=== PATIENT | female | born 1960 | race African-American/Black ===

== ENCOUNTER 2017-01-04 08:55 | Inpatient (IN) | payer OTHER ==
[2017-01-04] VITALS (27 sets, daily range): BP systolic 105–152; BP diastolic 53–109
[~2017-01-04] VITALS: Ht 172.7 cm; Wt 47.6 kg
--- NOTE | ~2017-01-04 | HC ---
[facility] [place] [address] CONSULTATION Name: HERMINIA RUBIO Room #: [facility] IN M.R.#: [id number] Admission: 01/04/17 Attend Phys: Concepcion Webster MD Discharge: Date of : 64 Report #: [id number] THIS REPORT FOR: //name// CC: Riley Webster DATE OF SERVICE: 01/06/2017 CHIEF COMPLAINT: Stage IV sacral pressure ulceration. HISTORY OF PRESENT ILLNESS: This is a 56-year-old female patient with chronic respiratory failure with tracheostomy and ventilator assistance who was admitted from local long-term acute care hospital for anasarca and ongoing respiratory failure. 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 She is also noted to have a large stage IV pressure ulcer. I have been asked to see her in this regard. PAST MEDICAL HISTORY: Positive for stroke, Guillain-[place] syndrome, history of cerebrovascular accident, respiratory failure with tracheostomy and ventilator dependency, hypertension, and diabetes mellitus. ALLERGIES: SHE HAS ALLERGIES TO IODINE AND PENICILLIN. MEDICATIONS: Include famotidine, enoxaparin, vancomycin, ondansetron, sertraline, gabapentin, doxazosin, minoxidil, labetalol, clonidine, and lorazepam. SOCIAL HISTORY: The patient lives in a nursing care facility. No recent history of alcohol or tobacco use. FAMILY HISTORY: Unknown. REVIEW OF SYSTEMS: Not obtainable due to the patient's condition. PHYSICAL EXAMINATION: VITAL SIGNS: At this time include respiratory rate 18, pulse rate of 80, blood pressure 143/56, temperature is 97.8. GENERAL: This is a chronically ill-appearing female patient who appears to be in no distress. HEENT: Head, normocephalic. Nose and throat are clear. Pupils are equal and reactive. NECK: Supple. LUNGS: Clear. HEART: Regular rhythm. NECK: Demonstrates tracheostomy in place. ABDOMEN: Obese, soft, nontender. [facility] [address] [place] [address] CONSULTATION Name: HERMINIA RUBIO Room #: [address] [place] [address] IN M.R.#: [id number] Admission: 01/04/17 Attend Phys: Concepcion Webster MD Discharge: Date of : 64 Report #: [id number] EXTREMITIES: Demonstrate some bogginess to the heels with no obvious breakdown. Demonstrate moderate edema present in upper and lower extremities. BACK: Examination of the back demonstrates a stage IV sacral pressure ulceration, it is a mix of granulation fibrin and some undermining is noted. It is not overtly infected. LABORATORY DATA: Sodium 124, potassium 3.7, chloride 90, CO2 25, BUN 88, creatinine 2.2, glucose is 158. Protime is 11.6, INR 1.1. White blood cell count 7.5, hemoglobin 7.0. CLINICAL IMPRESSION: 1. Stage IV sacral pressure ulceration. 2. Respiratory failure. 3. History of Guillain-[place]as[place] syndrome. 4. Possible deep tissue injury with bogginess to both heels. 5. Renal failure with anasarca. 6. Respiratory failure requiring tracheostomy and ventilator. RECOMMENDATIONS: At this point in time, we will recommend 1/4 strength Dakin's moist gauze packing to the sacral region. She will need to be turned and repositioned every 2 hours. We recommend protective boots to both heels. No other dressings were required at this time. Continue with aggressive nutritional support. I appreciate being asked to see her in consultation. <ELECTRONICALLY SIGNED> By: Joseph Reese MD 01/07/17 1030 1944 0212 Joseph Reese MD /nt
--- NOTE | ~2017-01-04 | EKG ---
[place] [address] [place] [address] ELECTROCARDIOGRAM REPORT Name: HERMINIA RUBIO Room #: 237-P ADM IN M.R.#: [id number] Admission: 01/04/17 Attend Phys: Concepcion Webster MD Discharge: Date of : 64 Report #: [id number] THIS REPORT FOR: //name// [facility] ED Test Date: 2017-01-04 Test Time: 10:25:36 Pat Name: HERMINIA RUBIO Department: Room: 237 Gender: F Cnc Operator Machinist: NICKO : 1960 Requested By: Dmitri Brooks Order Number: [id number] MD: Milton Angeles Measurements Intervals [place] Rate: 71 P: 82 [place]: 152 QRS: 88 QRSD: 96 T: -45 QT: 429 QTc: 467 Interpretive Statements Sinus rhythm Borderline repolarization abnormality Baseline wander in lead(s) I,III,aVR,aVL No previous ECG available for comparison Electronically Signed On 01-05-2017 13:45:43 CDT by Milton Angeles [email or web address] <ELECTRONICALLY SIGNED> By: Milton Angeles MD, [facility] 01/05/17 1345 1025 1025 Milton Angeles MD, [facility] /EPI
--- NOTE | ~2017-01-04 | H ---
[facility] [place] [address] HISTORY AND PHYSICAL Name: HERMINIA RUBIO Room #: 462-P ADM IN M.R.#: [id number] Admission: 01/04/17 Attend Phys: Concepcion Webster MD Discharge: Date of : 64 Report #: [id number] THIS REPORT FOR: //name// CC: Stankathryn Us Concepcion Webster DATE OF SERVICE: 01/04/2017 ATTENDING PHYSICIAN: Concepcion Webster MD. CHIEF COMPLAINT: Generalized swelling and respiratory failure. HISTORY OF PRESENT ILLNESS: This is a 56-year-old female with known history of Gullain-Orient syndrome with respiratory failure who has been on ventilator dependent. The patient was at [facility] and was noted to have fluid retention with bilateral lower extremity edema. The patient was given some Lasix, which did not help, but continued to have severe swelling all over her body. The patient has been admitted to the hospital and started on dialysis. She is currently on the ventilator. PAST MEDICAL HISTORY: Significant for history of Gullain-Orient syndrome, history of cerebrovascular accident and respiratory failure vent dependent, hypertension and diabetes mellitus. ALLERGIES: She is known to be allergic to IODINE and PENICILLIN. MEDICATIONS: She was currently on was reconciled and reviewed. She was on multiple blood pressure medications and insulin sliding scale. REVIEW OF SYSTEMS: Not possible. SOCIAL HISTORY: None available. PHYSICAL EXAMINATION: GENERAL: Elderly lady who was in bed. She was in moderate distress secondary to her generalized swelling. VITAL SIGNS: She was afebrile, pulse was 78 per minute and regular, respiratory rate of 16, blood pressure 147/81. NECK: The patient had anterior tracheostomy and was on the ventilator. LUNGS: Clear with no wheezing and there was diminished air entry bilaterally. HEART: First and second heart sound which is normal. ABDOMEN: The patient had generalized 3+ edema of her extremities and her abdominal wall. LABORATORY DATA: On admission showed sodium of 120, potassium 5.7, chloride of 88, bicarbonate of 21. BUN was 132, creatinine of 2.7. Natriuretic peptide was [facility] [address] [place] [address] HISTORY AND PHYSICAL Name: HERMINIA RUBIO Room #: 462-[facility] IN M.R.#: [id number] Admission: 01/04/17 Attend Phys: Concepcion Webster MD Discharge: Date of : 64 Report #: [id number] 15,000. White cell count 8.6, hemoglobin 7.4, hematocrit 20.3 and a platelet count of 190. Urine culture was pending. Chest x-ray: Cardiomegaly with bilateral interstitial edema suggestive of CHF. ASSESSMENT: 1. Anasarca. 2. Renal failure. 3. Respiratory failure. PLAN: To admit her to the Intensive Care Unit. She was on a ventilator. We will have her respiratory consultation as well as renal consult to get started on dialysis and monitor her labs. <ELECTRONICALLY SIGNED> By: Concepcion Webster MD 01/15/17 1413 0949 1028 Concepcion Webster MD /nt
--- NOTE | ~2017-01-04 | HC ---
[facility] [place] [address] CONSULTATION Name: HERMINIA RUBIO Room #: 462- ADM IN M.R.#: [id number] Admission: 01/04/17 Attend Phys: Concepcion Webster MD Discharge: Date of : 64 Report #: [id number] THIS REPORT FOR: //name// CC: Riley Webster REASON FOR CONSULTATION: I was asked to evaluate concerning sacral decubitus infection. HISTORY OF PRESENT ILLNESS: The patient was a 56-year-old who was transferred from Chronic Vent Unit at [facility]. She has chronic kidney disease, on dialysis previously, who had come off dialysis and access was removed a short time ago. She has underlying diabetes and hypertension with a stroke and right hemiparesis with aphasia. She also was diagnosed with Guillain-[place] and treated at [facility]. Transferred to [facility] on 01/04/2017 with anasarca and worsening renal failure along with hyperkalemia. She remains chronically on the ventilator. Dialysis was reinitiated and her parameters have all improved. REVIEW OF SYSTEMS: Notes some nausea and vomiting initially. Her PEG tube was put to suction. She has had a moderate amount of tracheal secretions. Oxygen saturation has been stable on 30% FiO2. Since being on Kayexalate for her hyperkalemia she has had diarrhea. She has a chronic wound to her coccyx. This has been treated with Dakin's dressing changes. ALLERGIES: PENICILLIN AND IODINE. MEDICATIONS: As noted on her JUL. No recent antibiotics. PAST MEDICAL HISTORY: Stroke, respiratory failure, ventilatory-dependent, hypertension, diabetes, Guillain-[place], renal failure. FAMILY HISTORY: Noncontributory. SOCIAL HISTORY: Not currently available other than that she moved from [place] to be closer to her family. PHYSICAL EXAMINATION: VITAL SIGNS: Afebrile and hemodynamically stable. GENERAL: She was alert and cooperative. HEENT: Unremarkable. Tracheostomy is unremarkable. She had 2+ anasarca. LUNGS: Coarse bilaterally. She had a moderate amount of yellow tracheal secretions. HEART: Regular, without murmur. ABDOMEN: Soft, nontender, no hepatosplenomegaly or mass. PEG site was unremarkable. GENITOURINARY AND RECTAL: She had an indwelling Sinclair catheter. She had a [facility] [address] [address] CONSULTATION Name: HERMINIA RUBIO Room #: [facility] IN M.R.#: [id number] Admission: 01/04/17 Attend Phys: Concepcion Webster MD Discharge: Date of : 64 Report #: [id number] tube in place. There was a stage IV decubitus to her coccyx with minimal granulation tissue. EXTREMITIES: Lower extremities unremarkable. LABORATORY STUDIES: Sodium 124, potassium 3.7, creatinine 2.2, bicarbonate 25. BNP 15,000. INR 1.1. Hemoglobin 7, WBC 7.5, platelet count 196,000, differential unremarkable. MRSA screen positive. C. difficile PCR negative. Urinalysis, moderate WBC, many bacteria, yeast present. Yesterday ABG on 30% FIO2 showed pO2 of 64, pCO2 of 35, pH 7.35. Culture results from the sputum showing MRSA. Urine culture, Klebsiella oxytoca, which was ESBL linen grader. Chest x-ray, bilateral basilar infiltrates and atelectasis. IMPRESSION AND PLAN: A 56-year-old with respiratory failure, diabetes, hypertension, previous stroke, chronic kidney disease which looks like end-stage at this point in time requiring hemodialysis, who has large sacral decubitus with a Klebsiella urinary tract infection and MRSA bronchopneumonia. Recommend vancomycin and meropenem due to her PENICILLIN allergy. We will adjust for her renal failure. She will continue with hemodialysis per Nephrology service. Unclear yet if she is going to be end stage, but it looks like she is headed that way. We will continue with dressing changes to her sacrum and offload as best as possible. We will keep a rectal tube in place in order to keep the wound as clean as possible. <ELECTRONICALLY SIGNED> By: Noe Us MD 01/11/17 1247 1604 2142 Noe Us MD /nt
--- NOTE | ~2017-01-04 | HC ---
[facility] [place] [address] CONSULTATION Name: HERMINIA RUBIO Room #: [facility] ADM IN M.R.#: [id number] Admission: 01/04/17 Attend Phys: Concepcion Webster MD Discharge: Date of : 64 Report #: [id number] THIS REPORT FOR: //name// CC: Stanjovanycat Magen Concepcion Webster DATE OF SERVICE: 01/04/2017 ATTENDING PHYSICIAN: Dr. Concepcion Webster MD REASON FOR CONSULTATION: Chronic kidney disease. HISTORY OF PRESENT ILLNESS: The patient with known chronic kidney disease, previously on dialysis, had been withdrawn from dialysis during a recent hospitalization at [facility]. Access was removed. She was transferred to group home, but over the last several days, has had decreasing urine output, increasing swelling and now unresponsive to IV Lasix in terms of urine output with rising creatinine and BUN. Most recent creatinine is 2.7 with a BUN of 132, potassium of 5.7, a serum sodium of only 120, hemoglobin of 7.4. PAST MEDICAL HISTORY: Longstanding diabetes and hypertension, previous CVA with right hemiparesis and aphasia, previous coronary bypass, previous dialysis as mentioned. She also had a recent diagnosis of Guillain-[place], but is unclear as to how that was treated. FAMILY HISTORY: Negative for renal disease. SOCIAL HISTORY: Has moved up here from [place] be closely to more family. REVIEW OF SYSTEMS: Cannot be taken due to the patient's mental status. She is on the ventilator and seen here in ICU. Extensive history taken from her daughter. PHYSICAL EXAMINATION: GENERAL: This is a chronically ill appearing, somewhat swollen woman on the ventilator. SKIN: Unremarkable. SKELETAL: Diffuse edema everywhere. HEENT: Extraocular movements appear to be full. No scleral icterus. Hearing appears intact. Mucous membranes are slightly dry. Endotracheal tube in place with tracheostomy. CHEST: Shows diminished breath sounds. HEART: Regular. ABDOMEN: Shows edema, firm. EXTREMITIES: Again, 2+ peripheral edema. [facility] [address] [place] [address] CONSULTATION Name: HERMINIA RUBIO Room #: [address] [place] [address] IN .R.#: [id number] Admission: 01/04/17 Attend Phys: Concepcion Webster MD Discharge: Date of : 64 Report #: [id number] LABORATORY DATA: Urinalysis shows a concentrated urine of 1.025 with bacteriuria. The hemoglobin is 7.4, white count 8.6, platelets 190. Sodium 120, potassium 5.7, chloride 88, bicarbonate 21, BUN 132, creatinine 2.7. Chest x-ray suggests volume overload and congestive heart failure. ASSESSMENT AND PLAN: 1. Chronic kidney disease. She appears to be having another acute exacerbation with her chronic kidney disease. It looks like she will need dialysis. I will change her Sinclair catheter. She will need a renal sonogram performed as well. We will order that and she will also be ordered for dialysis starting tomorrow. 2. History of cerebrovascular accident. 3. Guillain-[place]. 4. Diabetes mellitus. 5. Hypertension. 6. Previous coronary bypass. <ELECTRONICALLY SIGNED> By: Jb Laguna MD 01/06/17 1144 1419 2257 Jb Laguna MD /nt
--- NOTE | ~2017-01-04 | D ---
[facility] [place] [address] DISCHARGE SUMMARY Name: HERMINIA RUBIO Room #: 462-P [facility] IN M.R.#: [id number] Admission: 01/04/17 Attend Phys: Concepcion Webster MD Discharge: Date of : 64 Report #: [id number] THIS REPORT FOR: //name// CC: Riley Webster FINAL DIAGNOSES: 1. Acute renal failure. 2. Chronic hypoxic respiratory failure. 3. Guillain-[place] syndrome. 4. Cerebrovascular disease. 5. Hypertension. 6. Anemia of chronic disease. HOSPITAL COURSE: The patient was admitted for evaluation of respiratory failure and renal failure. She has been on the ventilator related to an episode of Guillain-[place] syndrome earlier this year and previously had been unweanable. She received [facility] hospital prior to her group home admission. She had worsening renal function that ultimately required initiation of hemodialysis. She had diffuse anasarca that was removed with serial dialysis treatments. During her stay, she was weaned from the ventilator. She was tolerating a T-tube overnight with a Passy-Tank valve during the day. She had a video swallow and speech upgraded to an oral diet. Tube feedings were held. She continued with wound care to the sacrum. She was having liquid stools with control device in place. Ultimately, the plan was for her to transfer to an LTAC facility in hopes of weaning her tracheostomy tube. PHYSICAL EXAMINATION: On the day of discharge: GENERAL: She was awake and alert, on hemodialysis, on a T-tube. VITAL SIGNS: Stable. LUNGS: Clear. HEART: Regular. ABDOMEN: Soft, normoactive bowel sounds. EXTREMITIES: No edema. DISPOSITION: She is being transferred to [facility]. I signed all her transfer orders. I have spoken to the . Follow up will be with Dr. Us, pulmonary, renal, ID, and wound care teams. Prognosis is optimistic at this point for continued pulmonary improvement. <ELECTRONICALLY SIGNED> By: Eusebio Watts MD 01/27/17 0903 0900 1109 Eusebio Watts MD /nt
--- NOTE | ~2017-01-04 | HC ---
[facility] [place] [address] CONSULTATION Name: HERMINIA RUBIO Room #: [facility] ADM IN M.R.#: [id number] Admission: 01/04/17 Attend Phys: Concepcion Webster MD Discharge: Date of : 64 Report #: [id number] THIS REPORT FOR: //name// CC: Riley Webster DATE OF SERVICE: 01/08/2017 FOLLOWUP NOTE The patient is seen today in the Intensive Care Unit for followup of a stage 4 sacral pressure ulceration. She does make eye contact. She is not verbal. She does note some discomfort with movement and with dressing changes. PHYSICAL EXAMINATION: VITAL SIGNS: At this time include temperature 98.2, pulse 74, respiration rate 17, blood pressure 116/51. GENERAL: This is a chronically ill-appearing female patient, appears to be in no distress. NECK: Demonstrates tracheostomy. LUNGS: Diminished. ABDOMEN: Soft. Examination of the sacral region demonstrates stage 4 sacral pressure ulceration with a little bit of undermining. It is mostly covered with granulation. We are very close to the bone, but it does not appear to be grossly infected. CLINICAL IMPRESSION: 1. Stage 4 sacral pressure ulceration. 2. Respiratory failure. 3. History of cerebrovascular accident. RECOMMENDATIONS: At this point in time, I think we will start with a wound VAC to perhaps get better closure of the wound base and continue with the pressure reducing surface and turning and repositioning every 2 hours. <ELECTRONICALLY SIGNED> By: Joseph Reese MD 01/09/17 1539 0817 0940 Joseph Reese MD /nt
--- NOTE | ~2017-01-04 | HC ---
[facility] [place] [address] CONSULTATION Name: HERMINIA RUBIO Room #: 462- ADM IN M.R.#: [id number] Admission: 01/04/17 Attend Phys: Concepcion Webster MD Discharge: Date of : 64 Report #: [id number] THIS REPORT FOR: //name// CC: Stankathryn Us Concepcion Webster DATE OF SERVICE: 01/04/2017 REFERRING PHYSICIAN: Concepcion Webster MD REASON FOR CONSULTATION: Respiratory failure. CHIEF COMPLAINT: Anasarca and renal failure. HISTORY OF PRESENT ILLNESS: Our group was asked to see the patient in consultation while hospitalized at [facility]. A 56-year-old woman with a complex history including chronic respiratory failure over the past few months related to CVA with left hemiparesis and recent history of Guillain-[place], has a chronic trach and PEG tube in place. Had been at [facility] after prolonged stay at [facility] where she failed to wean from mechanical ventilatory support, and had been noted increasing edema and anasarca throughout. The patient was not significantly responsive to diuretics, subsequently transferred to [facility] today for further evaluation and was noted to have some hyperkalemia, hyponatremia and worsening renal failure and subsequently admitted for dialysis. A tunneled dialysis catheter was placed earlier today, is now in the ICU for further management. The patient states she has not been successfully weaned from mechanical ventilatory support. ALLERGIES: Include PENICILLIN, IODINE. PAST MEDICAL HISTORY: 1. History of stroke with left-sided hemiparesis. 2. Chronic respiratory failure. 3. History of Guillain-[place] syndrome. OUTPATIENT MEDICATIONS: Include alprazolam, Hesham packet, chlorhexidine mouth wash, clonidine, enoxaparin, Lasix, hydralazine, labetalol, minoxidil, olanzapine, tolterodine, sodium bicarbonate tablets, Zoloft. SOCIAL HISTORY: Unobtainable due to current status. FAMILY HISTORY: Unobtainable due to current status. REVIEW OF SYSTEMS: Otherwise, unobtainable due to current status although than patient denies any pain anywhere, nausea, vomiting or abdominal pain. She does [facility] [address] [place] [address] CONSULTATION Name: HERMINIA RUBIO Room #: [facility] ADM IN M.R.#: [id number] Admission: 01/04/17 Attend Phys: Concepcion Webster MD Discharge: Date of : 64 Report #: [id number] note and able to nod yes or no with noted left-sided hemiparesis and weakness. PHYSICAL EXAMINATION: GENERAL: This is a middle-aged woman, does not appear in distress, arousable. ENT: Reveals a tracheostomy tube in place. No surrounding erythema. LUNGS: Breath sounds relatively coarse improved with suctioning. CARDIOVASCULAR: Heart was regular. No murmurs noted. ABDOMEN: Distended, but nontender, mildly resonant to percussion. PEG tube in place. EXTREMITIES: Revealed some contractures in the left with 1+ edema diffusely. NEUROLOGIC: Revealed alert patient, and would respond yes and no to questions with nodding and follow simple commands. Left-sided dense hemiparesis noted with extremely weak. In the right side, able to reach with right upper extremity and shake my hand, but unable to lift right lower extremity off the bed significantly. LABORATORY DATA: Sodium 120, potassium 5.7, chloride 88, bicarb 21, BUN 132, creatinine 2.7, glucose 177. BNP is ____. INR 1.1. White blood cell count 8.6, hemoglobin 7, hematocrit 20, platelet count 190. No arterial blood gases available. Chest x-ray reveals dialysis catheter in good position, significant cardiomegaly with left atrial enlargement and probable pulmonary edema. IMPRESSION: 1. Chronic respiratory failure, unclear why she is unable to wean from mechanical ventilatory support, but likely due to diffuse weakness and inability to handle work of breathing. 2. Left-sided hemiparesis associated with cerebrovascular accident. 3. Generalized weakness due to Guillain-[place] syndrome. 4. End-stage or kixx-lfs-ruwim renal disease. 5. Hyperkalemia. 6. Hyponatremia. SUGGESTIONS: 1. Bronchodilators. 2. Consider attempts to mechanical ventilator weaning support when records available to review. 3. Dialysis per Nephrology. 4. Enteral nutrition. 5. Additional recommendations to follow. Thank you for requesting our suggestions. <ELECTRONICALLY SIGNED> By: Jimmy Palomares MD 01/15/17 1304 2236 1046 Jimmy Palomares MD /nt
[2017-01-04 09:55] LABS: HEMATOCRIT 20.3 % (37.0-47.0); HEMOGLOBIN 7.4 gm/dL (12.0-15.0); MCH 30.6 pg (26.0-34.0); MCHC 36.4 g/dL (28.0-37.0); MCV 84.2 fL (80.0-100.0); PLATELET COUNT 190 thou/uL (150-400); RBC 2.41 mil/uL (4.20-5.00); RDW 15.3 % (10.5-14.5); WBC 8.6 thou/uL (4.0-11.0)
[2017-01-04 09:56] LABS: MANUAL DIFF YES
[2017-01-04 10:03] LABS: CREATININE 2.7 mg/dL (0.6-1.0)
[2017-01-04 10:04] LABS: POTASSIUM 5.7 mmol/L (3.5-5.1)
[2017-01-04 10:33] LABS: URINE BILIRUBIN NEGATIVE (Negative); URINE BLOOD 1+ (Negative); URINE COLOR YELLOW; URINE GLUCOSE-RANDOM* NEGATIVE (Negative); URINE KETONES NEGATIVE (Negative); URINE PROTEIN (DIPSTICK) 2+ (Negative); URINE SPECIFIC GRAVITY 1.025 (1.003-1.035); URINE UROBILINOGEN 0.2 E.U./dl (0.2-1.0)
[2017-01-04 10:48] LABS: URINE LEUKOCYTES-REFLEX 3+ (Negative)
[2017-01-04 11:10] LABS: ABSOLUTE NEUTROPHILS 7.7 thou/uL (1.4-8.2); ANISOCYTOSIS 1+; HYPOCHROMASIA 1+; TOTAL CELL COUNT 100
[2017-01-04 12:00] LABS: SQUAMOUS 4-10 Moderate /LPF (0-3)
[2017-01-04 12:01] LABS: FINE GRANULAR CASTS 0-3 Few /LPF (None Seen)
[2017-01-04 12:02] LABS: CRYSTALS None Seen /LPF (None Seen); URINE RBC 3-10 Few /HPF (0-2); YEAST-REFLEX Present (None Seen)
[2017-01-04] MEDS ORDERED: ENOXAPARIN30 MG/0.1 SUBQ (14:54)
[2017-01-04] MEDS ORDERED: PERIDEX15 ML MUCOUS MEM (14:55)
[2017-01-04] MEDS ORDERED: GABAPENTIN 100100 MG PER TUBE (14:57)
[2017-01-04] MEDS ORDERED: FERROUS SU300 MG/5 M PER TUBE (14:57)
[2017-01-04] MEDS ORDERED: MINOXIDIL2.5 MG PER TUBE (14:58)
[2017-01-04] MEDS ORDERED: JUVEN PACKET1 EACH PER TUBE (14:58)
[2017-01-04] MEDS ORDERED: PROTONIX40 M1 PO (14:59)
[2017-01-04] MEDS ORDERED: OLANZAPINE2.5 MG PER TUBE (14:59)
[2017-01-04] MEDS ORDERED: SODIUM BICARBO650 M3 PER TUBE (15:01)
[2017-01-04] MEDS ORDERED: TOLTERODINE TART2 MG PER TUBE (15:02)
[2017-01-04] MEDS ORDERED: HYDRALAZINE 2525 MG PER TUBE (15:03)
[2017-01-04] MEDS ORDERED: ISOSORBIDE DN 110 M1 PER TUBE (15:04)
[2017-01-04] MEDS ORDERED: TRANDATE 200 M200 MG PER TUBE (15:06)
[2017-01-04] MEDS ORDERED: SERTRALINE HCL50 MG PER TUBE (15:07)
[2017-01-04] MEDS ORDERED: CARDURA4 MG PER TUBE (15:07)
[2017-01-04] MEDS ORDERED: LASIX 40 MG TAB40 MG PER TUBE (15:12)
[2017-01-04] MEDS ORDERED: POTASSIUM20 PER TUBE (15:13)
[2017-01-04] MEDS ORDERED: DUONEB 2.5-0.5 M3 ML INH (15:14)
[2017-01-04] MEDS ORDERED: CATAPRES-TTS 10.1 M2 TRANSDERM (15:15)
[2017-01-04] MEDS ORDERED: CLORPACTIN WCS-92 GM IRRIG (15:16)
[2017-01-04] MEDS ORDERED: HUMALOG100 UNIT/1 SUBQ (15:17)
[2017-01-04] MEDS ORDERED: LANTUS100 UNIT/M SUBQ (15:20)
[2017-01-04] MEDS ORDERED: ALPRAZOLAM 0.0.25 MG PO (15:21)
[2017-01-04] MEDS ORDERED: OXYCODONE HCL 55 MG PO (15:25)
[2017-01-04] MEDS ORDERED: ROXICODONE5 M2 PO (15:27)
[2017-01-04 16:15] LABS: APTT 32.6 Seconds (24.5-32.8); INR 1.1; PROTIME 11.6 Seconds (9.3-11.4)
[2017-01-05] VITALS (12 sets, daily range): BP systolic 126–159; BP diastolic 56–75
[2017-01-05 03:42] LABS: HEMATOCRIT 21.4 % (37.0-47.0); MCV 84.9 fL (80.0-100.0); RBC 2.52 mil/uL (4.20-5.00); RDW 15.2 % (10.5-14.5); WBC 7.5 thou/uL (4.0-11.0)
[2017-01-05 03:56] LABS: ALBUMIN 2.5 g/dL (3.4-5.0); CALCIUM 8.9 mg/dL (8.5-10.1); CREATININE 2.8 mg/dL (0.6-1.0); PHOSPHORUS 3.7 mg/dL (2.5-4.9)
[2017-01-05 05:23] LABS: ABG SAMPLE TYPE ARTERIAL; BE(vivo) -5.5 mmol/L (-2 to +3); HCO3 19.4 mmol/L (22.0-26.0); LACTATE 0.96 mmol/L (0.5-2.0); O2(CT) 11.7 mL/dL (15.0-23.0); O2Hb 91.8 % (92.0-98.0); PCO2 35.3 mmHg (35.0-45.0); PO2 64.6 mmHg (80.0-100.0); STICK SITE RRA; TIDAL VOLUME 350 ml; pH 7.358 (7.360-7.450); tCO2 20.5 mmol/L (24.0-30.0)
[2017-01-05 05:24] LABS: ABG COMMENT AC12 350 +5 30%
[2017-01-06] VITALS (35 sets, daily range): BP systolic 117–173; BP diastolic 49–77
[2017-01-06 04:17] LABS: ALBUMIN 2.6 g/dL (3.4-5.0); CALCIUM 8.7 mg/dL (8.5-10.1); CREATININE 2.2 mg/dL (0.6-1.0); PHOSPHORUS 3.3 mg/dL (2.5-4.9); POTASSIUM 3.7 mmol/L (3.5-5.1)
[2017-01-07] VITALS (38 sets, daily range): BP systolic 103–153; BP diastolic 44–80
[2017-01-07 04:28] LABS: ALBUMIN 2.3 g/dL (3.4-5.0); CALCIUM 8.7 mg/dL (8.5-10.1); CREATININE 1.7 mg/dL (0.6-1.0); PHOSPHORUS 3.2 mg/dL (2.5-4.9); POTASSIUM 3.8 mmol/L (3.5-5.1)
[2017-01-07 05:10] LABS: ABG SAMPLE TYPE ARTERIAL; BE(vivo) -0.1 mmol/L (-2 to +3); HCO3 24.9 mmol/L (22.0-26.0); LACTATE 0.93 mmol/L (0.5-2.0); O2Hb 95.8 % (92.0-98.0); PCO2 42.4 mmHg (35.0-45.0); PO2 96.5 mmHg (80.0-100.0); pH 7.387 (7.360-7.450); sO2 97.3 % (92.0-98.0); tCO2 26.2 mmol/L (24.0-30.0)
[2017-01-07 05:11] LABS: STICK SITE R.RADIAL; TIDAL VOLUME 350 ml
[2017-01-08] VITALS (20 sets, daily range): BP systolic 108–159; BP diastolic 44–71
[2017-01-08 04:55] LABS: ALBUMIN 2.3 g/dL (3.4-5.0); CALCIUM 8.7 mg/dL (8.5-10.1); CREATININE 1.6 mg/dL (0.6-1.0); PHOSPHORUS 2.5 mg/dL (2.5-4.9); POTASSIUM 3.4 mmol/L (3.5-5.1)
[2017-01-08 16:50] LABS: ABG SAMPLE TYPE ARTERIAL; BE(vivo) 3.1 mmol/L (-2 to +3); HCO3 27.2 mmol/L (22.0-26.0); LACTATE 0.72 mmol/L (0.5-2.0); O2(CT) 11.2 mL/dL (15.0-23.0); O2Hb 97.7 % (92.0-98.0); PCO2 39.3 mmHg (35.0-45.0); Pressure Support 8 cm H20; STICK SITE R.BRACHIAL; pH 7.458 (7.360-7.450); sO2 98.4 % (92.0-98.0); tCO2 28.4 mmol/L (24.0-30.0)
[2017-01-08 16:51] LABS: ABG COMMENT 1 HR CPAP TRIAL
[2017-01-09] VITALS (36 sets, daily range): BP systolic 104–162; BP diastolic 49–72
[2017-01-10] VITALS (35 sets, daily range): BP systolic 103–156; BP diastolic 44–81
[2017-01-11 04:55] VITALS: BP 140/60
[2017-01-11 07:51] VITALS: BP 114/50
[2017-01-11 12:55] VITALS: BP 147/56
[2017-01-11 17:32] VITALS: BP 127/61
[2017-01-11 20:59] VITALS: BP 142/62
[2017-01-12 05:12] VITALS: BP 131/57
[2017-01-12 06:03] LABS: ALBUMIN 2.7 g/dL (3.4-5.0); CREATININE 2.6 mg/dL (0.6-1.0); PHOSPHORUS 2.3 mg/dL (2.5-4.9); POTASSIUM 3.8 mmol/L (3.5-5.1)
[2017-01-12 07:39] VITALS: BP 105/45
[2017-01-12 12:00] VITALS: BP 134/66
[2017-01-12 16:00] VITALS: BP 127/72
[2017-01-12 20:00] VITALS: BP 135/64
[2017-01-12 20:41] VITALS: BP 128/50
[2017-01-13] VITALS: BP 138/66
[2017-01-13 04:38] VITALS: BP 135/71
[2017-01-13 08:00] VITALS: BP 115/53
[2017-01-13 12:00] VITALS: BP 148/67
[2017-01-13 16:00] VITALS: BP 96/47
[2017-01-14 04:21] VITALS: BP 143/71
[2017-01-14 06:07] LABS: HEMATOCRIT 22.4 % (37.0-47.0); HEMOGLOBIN 7.6 gm/dL (12.0-15.0); MCH 28.8 pg (26.0-34.0); MCHC 33.8 g/dL (28.0-37.0); MCV 85.1 fL (80.0-100.0); RBC 2.63 mil/uL (4.20-5.00); RDW 15.1 % (10.5-14.5); WBC 8.8 thou/uL (4.0-11.0)
[2017-01-14 06:15] LABS: INR 1.1; PROTIME 11.6 Seconds (9.3-11.4)
[2017-01-14 06:20] LABS: CALCIUM 9.4 mg/dL (8.5-10.1); CREATININE 2.6 mg/dL (0.6-1.0); PHOSPHORUS 2.3 mg/dL (2.5-4.9); POTASSIUM 3.7 mmol/L (3.5-5.1)
[2017-01-14 06:30] VITALS: BP 143/71
[2017-01-14 08:02] VITALS: BP 150/68
[2017-01-14 12:25] VITALS: BP 153/71
[2017-01-14 18:08] VITALS: BP 135/58
[2017-01-14 21:10] VITALS: BP 143/63
[2017-01-15 03:41] VITALS: BP 149/64
[2017-01-15 07:51] VITALS: BP 92/43
[2017-01-15 12:19] VITALS: BP 159/71
[2017-01-15 12:47] LABS: ABG SAMPLE TYPE ARTERIAL; BE(vivo) 3.3 mmol/L (-2 to +3); HCO3 27.3 mmol/L (22.0-26.0); LACTATE 0.62 mmol/L (0.5-2.0); O2(CT) 12.1 mL/dL (15.0-23.0); PCO2 39.1 mmHg (35.0-45.0); PO2 74.6 mmHg (80.0-100.0); pH 7.462 (7.360-7.450); sO2 95.7 % (92.0-98.0); tCO2 28.5 mmol/L (24.0-30.0)
[2017-01-15 12:48] LABS: STICK SITE R.RADIAL
[2017-01-15 12:50] LABS: ABG COMMENT CPAP X 2 HRS; Pressure Support 8 cm H20; TIDAL VOLUME 370 ml
[2017-01-15 16:12] VITALS: BP 151/64
[2017-01-15 20:35] VITALS: BP 161/69
[2017-01-16 08:25] VITALS: BP 168/77
[2017-01-16 12:00] VITALS: BP 140/68
[2017-01-16 12:19] LABS: ABG SAMPLE TYPE ARTERIAL; BE(vivo) -0.1 mmol/L (-2 to +3); HCO3 25.5 mmol/L (22.0-26.0); LACTATE 0.64 mmol/L (0.5-2.0); O2(CT) 13.5 mL/dL (15.0-23.0); PCO2 45.8 mmHg (35.0-45.0); PO2 90.5 mmHg (80.0-100.0); pH 7.364 (7.360-7.450); sO2 96.6 % (92.0-98.0); tCO2 26.9 mmol/L (24.0-30.0)
[2017-01-16 12:20] LABS: STICK SITE R.BRACHIAL
[2017-01-16 15:09] VITALS: BP 161/65
[2017-01-16 19:30] VITALS: BP 186/77
[2017-01-17 04:40] VITALS: BP 163/63
[2017-01-17 06:12] LABS: ALBUMIN 2.9 g/dL (3.4-5.0); CALCIUM 9.3 mg/dL (8.5-10.1); CREATININE 2.3 mg/dL (0.6-1.0); PHOSPHORUS 3.1 mg/dL (2.5-4.9); POTASSIUM 3.7 mmol/L (3.5-5.1)
[2017-01-17 16:36] VITALS: BP 162/66
[2017-01-17 19:30] VITALS: BP 158/60
[2017-01-18 05:06] LABS: HEMATOCRIT 22.2 % (37.0-47.0); HEMOGLOBIN 7.6 gm/dL (12.0-15.0); MCV 85.2 fL (80.0-100.0); RBC 2.61 mil/uL (4.20-5.00); RDW 15.5 % (10.5-14.5); WBC 10.3 thou/uL (4.0-11.0)
[2017-01-18 05:22] LABS: ALBUMIN 2.9 g/dL (3.4-5.0); CREATININE 1.6 mg/dL (0.6-1.0); PHOSPHORUS 2.4 mg/dL (2.5-4.9); POTASSIUM 3.9 mmol/L (3.5-5.1)
[2017-01-18 07:10] VITALS: BP 150/58
[2017-01-18 12:15] VITALS: BP 168/76
[2017-01-18 15:55] VITALS: BP 186/80
[2017-01-18 19:53] VITALS: BP 200/78
[2017-01-18 19:55] VITALS: BP 211/83
[2017-01-18 21:58] VITALS: BP 205/79
[2017-01-19] VITALS (7 sets, daily range): BP systolic 136–204; BP diastolic 41–86
[2017-01-19 07:00] LABS: CALCIUM 9.8 mg/dL (8.5-10.1); CREATININE 2.5 mg/dL (0.6-1.0); PHOSPHORUS 3.7 mg/dL (2.5-4.9)
[2017-01-19 08:42] LABS: HEMATOCRIT 22.3 % (37.0-47.0); HEMOGLOBIN 7.5 gm/dL (12.0-15.0); MCH 28.4 pg (26.0-34.0); MCHC 33.5 g/dL (28.0-37.0); MCV 84.7 fL (80.0-100.0); PLATELET COUNT 234 thou/uL (150-400); RBC 2.63 mil/uL (4.20-5.00); RDW 15.6 % (10.5-14.5); WBC 9.3 thou/uL (4.0-11.0)
[2017-01-19 08:44] LABS: MANUAL DIFF YES
[2017-01-19 09:25] LABS: ABSOLUTE NEUTROPHILS 8.5 thou/uL (1.4-8.2); PLATELET ESTIMATE NORMAL; TOTAL CELL COUNT 100
[2017-01-20 04:38] VITALS: BP 206/89
[2017-01-20 08:27] VITALS: BP 201/90
[2017-01-20 11:03] VITALS: BP 210/90
[2017-01-20 18:06] VITALS: BP 177/80
[2017-01-20 19:50] VITALS: BP 183/80
[2017-01-21 04:29] VITALS: BP 154/72
[2017-01-21 08:02] VITALS: BP 90/41
[2017-01-21 12:00] VITALS: BP 159/65
[2017-01-21 17:30] VITALS: BP 194/81
[2017-01-21 20:11] VITALS: BP 158/60
[2017-01-22 04:44] VITALS: BP 171/68
[2017-01-22 08:47] VITALS: BP 173/71
[2017-01-22 11:33] VITALS: BP 170/69
[2017-01-22 16:35] VITALS: BP 163/639
[2017-01-22 20:37] VITALS: BP 143/63
[2017-01-23 06:03] VITALS: BP 144/62
[2017-01-23 15:34] VITALS: BP 164/47
[2017-01-23 19:25] VITALS: BP 170/72
[2017-01-24 03:23] VITALS: BP 117/57
[2017-01-24 07:48] VITALS: BP 107/53
[2017-01-24 11:47] VITALS: BP 114/57
[2017-01-24 17:48] VITALS: BP 116/56
[2017-01-24 19:49] VITALS: BP 118/56
[2017-01-25 05:06] VITALS: BP 120/62
[2017-01-25 09:22] VITALS: BP 86/43
[2017-01-25 10:30] VITALS: BP 105/54
[2017-01-25 12:34] VITALS: BP 117/56
[2017-01-25 16:26] VITALS: BP 124/56
[2017-01-25 20:00] VITALS: BP 124/55
[2017-01-26 04:00] VITALS: BP 139/59
[2017-01-26] MEDS ORDERED: MERREM1 GM IVPB (08:09)
[2017-01-26] MEDS ORDERED: PROCRIT20000 UNIT SUBQ (08:10)
[2017-01-26] MEDS ORDERED: VANCO 1 GR1 GM/250 M IVPB (08:10)
[2017-01-26] MEDS ORDERED: OXYCODONE HCL10 MG PO (08:11)
[2017-01-26] MEDS ORDERED: PEPCID20 MG PO (08:12)
[2017-01-26 08:36] VITALS: BP 124/64
[2017-01-26 15:30] VITALS: BP 117/58
[2017-01-26 20:25] VITALS: BP 91/50
[2017-01-27 05:57] VITALS: BP 141/67
[2017-01-27 08:13] VITALS: BP 85/46
[2017-01-27 15:56] VITALS: BP 89/50
[2017-01-27 16:49] VITALS: BP 115/52
[2017-01-27 20:23] VITALS: BP 130/64
[2017-01-28 03:42] VITALS: BP 115/48
[2017-01-28 07:47] VITALS: BP 135/62
[2017-01-28 11:30] VITALS: BP 115/61
[2017-01-28 14:35] VITALS: BP 141/69
[2017-01-28 19:54] VITALS: BP 134/61
[2017-01-28 23:58] VITALS: BP 151/68
[2017-01-29 03:47] VITALS: BP 117/55
[2017-01-29 08:03] VITALS: BP 89/45
[2017-01-29] MEDS ORDERED: ONDANSETRON HCL4 M1 IV PUSH (08:25)
[2017-01-29] MEDS ORDERED: ATIVAN0.5 MG PO (08:25)
[2017-01-29] MEDS ORDERED: AMLODIPINE BESY10 MG PER TUBE (08:25)
[2017-01-29 10:42] VITALS: BP 89/45
== END 2017-01-29 13:42 | DRG 207 ==
LOC: ER 08:55 → EROBS 11:17 → ICU 11:30 → 4W 01-10 16:03
PROVIDERS: Emergency Medicine; Hospitalist; Internal Medicine; Internal Medicine Infectious Disease; Internal Medicine Nephrology; Internal Medicine Pulmonary Disease
PROC: 5A1955Z Respiratory Ventilation, Greater than 96 Consecutive Hours (ICD-10-PCS; principal; 2017-01-04)
PROC: 5A1D60Z (ICD-10-PCS; 2017-01-05)
PROC: 05PYX3Z Removal of Infusion Device from Upper Vein, External Approach (ICD-10-PCS; 2017-01-15)
PROC: 02HV33Z Insertion of Infusion Device into Superior Vena Cava, Percutaneous Approach (ICD-10-PCS; 2017-01-15)
DX: J96.21 Acute and chronic respiratory failure with hypoxia (principal); N18.6 End stage renal disease; L89.154 Pressure ulcer of sacral region, stage 4; J15.212 Pneumonia due to Methicillin resistant Staphylococcus aureus; G92 Toxic encephalopathy; I12.0 Hypertensive chronic kidney disease with stage 5 chronic kidney disease or end stage renal disease; N17.9 Acute kidney failure, unspecified; E87.1 Hypo-osmolality and hyponatremia; G61.0 Guillain-Barre syndrome; L03.115 Cellulitis of right lower limb; I69.354 Hemiplegia and hemiparesis following cerebral infarction affecting left non-dominant side; D64.9 Anemia, unspecified; N30.90 Cystitis, unspecified without hematuria; B96.1 Klebsiella pneumoniae [K. pneumoniae] as the cause of diseases classified elsewhere; F41.9 Anxiety disorder, unspecified; Z86.74 Personal history of sudden cardiac arrest; Z93.0 Tracheostomy status; Z99.2 Dependence on renal dialysis; Z88.0 Allergy status to penicillin; Z91.041 Radiographic dye allergy status
CPT/HCPCS: 10045; 10078; 32100